=== PATIENT | female | born 1945 | race Two or more races ===

== ENCOUNTER → 2024-06-09 | Outpatient (CLI) | payer MEDICARE, BC, SELFPAY ==
--- NOTE | 2024-06-09 13:00 | XR_ITS ---
Examination: Duplex scan of the lower extremity, unilateral left Date and time of exam: June 09, 2024 1337 hrs. Indications: Left leg pain beginning one month ago Technique: Duplex scan of the extremity veins using B-mode/grayscale imaging and Doppler spectral analysis and color flow Attention is directed to internal echogenicity, compression and augmentation involving these veins, color flow assessment, spectral analysis Findings: Major deep venous structures in the extremity demonstrate normal course and caliber. There is no evidence of deep vein thrombosis. Normal color flow and spectral analysis Impression: Negative for DVT..
== END | disposition home or self-care (01) ==
LOC: CDIM 13:19
PROVIDERS: PCP Physician Assistant; Referring Provider Physician Assistant; Visit Provider Physician Assistant
DX: M79.605 Pain in left leg (principal)
CPT/HCPCS: 93971

== ENCOUNTER → 2024-11-15 | Outpatient (CLI) | payer MEDICARE, BC, SELFPAY ==
--- NOTE | 2024-11-15 14:00 | XR_ITS ---
Examination: MRI left femur, without contrast Date and time of exam: November 15, 2024 1425 hours INDICATIONS: Swelling palpable mass and pain in the distal third of the left thigh Technique: Multiple axial sagittal and coronal images of the left femur have been obtained with the Siemens high-resolution 1.5 [employer] MRI scanner. Images obtained include T2-weighted fat-suppressed sagittal sections, TR 3500, TE 46, T2 weighted coronal fat suppressed images, TR 3050, TE 84, T2-weighted transverse fat suppressed images, TR 3260, TE 63, proton density transverse images, TR 4720 TE 46, and T1 weighted coronal images, TR 560, TE 13. Findings: Axial images demonstrate increased signal in the rectus femoris, axial image 16, abductor tha as well as the semimembranosus as well as the biceps femoris No abnormal osseous signal No cortical bone destruction No mass in the subcutaneous tissue IMPRESSION: Multiple muscles in the thighs show increased signal, myositis pattern, tumor less likely but not excluded Recommend patient return for MRI images of the left femur post intravenous contrast
== END | disposition home or self-care (01) ==
LOC: SMRI 13:46
PROVIDERS: Referring Provider Family Medicine; Visit Provider Family Medicine
DX: R22.42 Localized swelling, mass and lump, left lower limb (principal)
CPT/HCPCS: 73718

== ENCOUNTER → 2025-01-13 | Outpatient (CLI) | payer MEDICARE, BC, SELFPAY ==
--- NOTE | 2025-01-13 15:00 | XR_ITS ---
Examination: CT abdomen with intravenous contrast CT pelvis with intravenous contrast 2-D coronal reconstructions 2-D sagittal reconstructions Date and time of exam: January 13, 2025, 1617 hours INDICATIONS: Right upper abdominal pain beginning several months ago. CTDI: vol (mGy) 7.25 DLP: (mGycm) 390 Technique: Multiple axial sections of the abdomen and pelvis have been obtained. 64 slice high-resolution scanner used. 3 mm axial sections have been obtained, post intravenous injection 60 cc [id number] 2-D sagittal, coronal reconstructions obtained. Low dose protocols were performed. One or more of the following dose reduction techniques were used; automated exposure control, adjustment of the mA and/or KV according to patient size, use of iterative reconstruction technique. Findings: Small liver cyst Absent gallbladder Spleen is not enlarged No pancreatic or adrenal mass Moderate renal scar formation Heavy abdominal aortic calcification Normal appendix No bowel obstruction Atrophic uterus Mild thickening urinary bladder wall up to 4 mm Prominent osteopenia IMPRESSION: Moderate renal scar formation No renal or ureteral calculi, no hydronephrosis Normal appendix Mild thickening of the urinary bladder wall, consider cystitis
== END | disposition home or self-care (01) ==
LOC: SCAT 14:46
PROVIDERS: PCP Physician Assistant; Referring Provider Physician Assistant; Visit Provider Physician Assistant
DX: N28.89 Other specified disorders of kidney and ureter (principal); N32.89 Other specified disorders of bladder
CPT/HCPCS: 74177; A4649; Q9967

== ENCOUNTER → 2025-01-14 | Outpatient (CLI) | payer MEDICARE, BC, SELFPAY ==
--- NOTE | 2025-01-14 | XR_ITS ---
Examination: Bone densitometry Date and time of exam: January 14, 2025, 1400 hours INDICATIONS: Menopause age 49 Technique: Lumbar spine and hip total bone mineralization values of an calculated. Peak reference and age match control results have been displayed. Findings: Lumbar spine total bone mineralization is 1.007 gm/cm2. This is 0.4 standard deviations below peak reference. This is 2.3 standard deviations above age-matched controls. Hip total bone mineralization is 0.853 gm/cm2 This is 0.7 standard deviations below peak reference. This is 1.3 standard deviations above age-matched controls Impression: There is normal mineralization based on lumbar spine measurements. There is normal mineralization based on hip measurements Lumbar mineralization is decreased 0.4% compared with June 01, 2022 Hip mineralization is increased 2.0% compared with June 01, 2022
== END | disposition home or self-care (01) ==
LOC: CDIM 12:17
DX: Z13.820 Encounter for screening for osteoporosis (principal); M81.0 Age-related osteoporosis without current pathological fracture
CPT/HCPCS: 77080

== ENCOUNTER 2025-01-26 06:40 | Day surgery (SDC) | payer MEDICARE, BC, SELFPAY ==
[2025-01-23 15:39] VITALS: BMI 21.9
[2025-01-26] VITALS (11 sets, daily range): BP systolic 146–170; BP diastolic 58–87; PULSE 69–92; RESP 13–22; TEMP 36.7; O2SAT 98–100; BMI 21.9
[2025-01-26] MEDS: SODIUM CHLORIDE 0.9% 500 ML 500 ML 100 ML IV (08:07)
[2025-01-26] MEDS: MIDAZOLAM INJ 1 MG/ML VIAL 2 ML (ASD USE ONLY) 2 MG IVP (08:08)
[2025-01-26] MEDS: fentaNYL CIT INJ 50 mCg/ML AMP 2ML (ASD USE ONLY) IVP (08:08)
== END 2025-01-26 08:45 | disposition home or self-care (01) ==
PROVIDERS: Referring Provider Surgery; Visit Provider Surgery
PROC: 0DBE8ZX Excision of Large Intestine, Via Natural or Artificial Opening Endoscopic, Diagnostic (ICD-10-PCS; CPT 45380; principal; 2025-01-26 07:30)
DX: Z12.11 Encounter for screening for malignant neoplasm of colon (principal); Z86.0100 Personal history of colon polyps, unspecified; D12.3 Benign neoplasm of transverse colon; D12.5 Benign neoplasm of sigmoid colon; K64.1 Second degree hemorrhoids; K57.30 Diverticulosis of large intestine without perforation or abscess without bleeding
CPT/HCPCS: 45385; 45380; A4649; J1200; J2250; J3010; J7999

== ENCOUNTER → 2025-01-29 | Outpatient (CLI) | payer MEDICARE, BC, SELFPAY ==
--- NOTE | 2025-01-29 15:45 | XR_ITS ---
Examination: MRI left femur without contrast Date and time of exam: January 29, 2025, 1635 hours INDICATIONS: Swelling palpable lump left lower femur noticed beginning 3 years ago Technique: Multiple MRI axial and sagittal sections lumbar spine. Sagittal T2-weighted images, TR 3500, TE 118 T1 weighted transverse sections, TR 688 T8.5, T2-weighted sagittal sections T1 weighted sagittal sections TR 621, TE 30 T2 axial sections, TR 4, 190, TE 84. 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
== END | disposition home or self-care (01) ==
LOC: SMRI 15:25
PROVIDERS: PCP Family Medicine; Referring Provider Physician Assistant; Visit Provider Physician Assistant
DX: R22.42 Localized swelling, mass and lump, left lower limb (principal)
CPT/HCPCS: 73719; A9577